=== PATIENT | female | born 1985 | race Caucasian/White ===

== ENCOUNTER 2016-08-18 01:42 | Emergency (ER) | payer OTHER, BC ==
[~2016-08-18] VITALS: Ht 162.6 cm; Wt 81.8 kg
[2016-08-18 03:44] VITALS: BP 128/93
== END 2016-08-18 03:45 | disposition home or self-care (01) ==
LOC: EME 01:42
DX: S50.02XA Contusion of left elbow, initial encounter (principal); S06.0X9A Concussion with loss of consciousness of unspecified duration, initial encounter; F10.129 Alcohol abuse with intoxication, unspecified; V49.10XA Passenger injured in collision with unspecified motor vehicles in nontraffic accident, initial encounter
CPT/HCPCS: 70450; 73080; 99281; 99283